=== PATIENT | male | born 1955 | race Caucasian/White ===

== ENCOUNTER 2020-07-05 23:09 | Inpatient (IN) ==
[2020-07-05] MEDS ORDERED: Dexamethasone IV 4 MG/ML VIAL 1 ml VIAL IV SLOW PU ONE (23:39)
[2020-07-05 23:59] LABS: ABS Basophils 0.1 10^3/ul (0-0.2); ABS Lymphocytes 2.2 10^3/ul (1.0-4.8); ABS Monocytes 0.8 10^3/ul (0-0.8); Eosinophil % 0.1 %; Hematocrit 41 % (42-52); Hemoglobin 13.8 g/dL (14.0-18.0); Lymphocyte % 24.2 %; Mean Corpuscular HGB Conc 34 g/dL (31-36); Mean Corpuscular Hemoglobin 31 pg (27-31); Mean Corpuscular Volume 90 fL (80-94); Mean Platelet Volume 8.5 fL (7.4-10.4); Nucleated Red Blood Cells % 0.2; Platelet Count 211 10^3/uL (150-450); Red Blood Count 4.53 10^6 /uL (4.18-5.48); Red Cell Distribution Width 15 % (10-15); White Blood Count 9.1 10^3/uL (3.5-10.8)
[2020-07-06 00:18] LABS: ALT 63 U/L (7-52); AST 71 U/L (13-39); Albumin 3.6 g/dL (3.2-5.2); Albumin/Globulin Ratio 1.2 (1-3); Alkaline Phosphatase 46 U/L (34-104); Anion Gap 10 mmol/L (2-11); Blood Urea Nitrogen 40 mg/dL (6-24); CO2 Carbon Dioxide 25 mmol/L (22-32); Calcium 7.9 mg/dL (8.6-10.3); Chloride 100 mmol/L (101-111); EGFR African American 46.6 (>60); EGFR Non-African American 38.6 (>60); Glucose 132 mg/dL (70-100); Potassium 4.3 mmol/L (3.5-5.0); Sodium 135 mmol/L (135-145); Total Protein 6.6 g/dL (6.4-8.9)
[2020-07-06] MEDS ORDERED: Remdesivir 100 mg Vial 200 MG in NS 0.9% 250 ml 210 ML IV ONE (00:32)
[2020-07-06 00:35] LABS: Influenza A Molecular Negative (Negative); Influenza B Molecular Negative (Negative)
[2020-07-06 00:41] LABS: Troponin I 0.19 ng/mL (<0.03)
[2020-07-06] MEDS ORDERED: NS 0.9% 1000 ml BAG 1,000 ML IV ONE (01:14)
[2020-07-06] MEDS ORDERED: cefTRIAXone 1 gm/50 mL NS BAG 1 GM/50 ML BAG ONE (01:29)
[2020-07-06] MEDS: Enoxaparin 60 MG/0.6 ML SYR SUBCUT SCH ×2 (01:41→13:34)
[2020-07-06] MEDS ORDERED: Albuterol HFA INHALER 8 gm MDI INH PRN (01:42)
[2020-07-06] MEDS ORDERED: Tocilizumab 200 MG/10 ML 10 ml VIAL IVPB ONE (01:49)
[2020-07-06] MEDS ORDERED: cefTRIAXone 1 gm/50 mL NS BAG 1 GM/50 ML BAG IVPB SCH (02:00)
[2020-07-06] MEDS ORDERED: Dextrose 50% Syringe 50 ml 25 GM/50 ML SYRINGE IV PUSH PRN (02:03)
[2020-07-06] MEDS ORDERED: Tocilizumab 800 MG in NS 0.9% 100 ml BAG 60 ML IVPB ONE (02:30)
[2020-07-06 03:13] LABS: Activated Partial Thrombo Time 30.4 seconds (26.0-38.0); INR 1.56 (0.82-1.09)
[2020-07-06 03:14] LABS: C Reactive Protein 203.15 mg/L (<8.01)
[2020-07-06 05:44] LABS: Ferritin 436.4 ng/mL (24-336)
[2020-07-06 07:59] LABS: Urine Appearance Turbid; Urine Bilirubin Negative (Negative); Urine Blood 1+ (Negative); Urine Color Yellow; Urine Glucose Negative (Negative); Urine Ketones Negative (Negative); Urine Nitrite Negative (Negative); Urine Protein 2+(100 mg/dL) (Negative); Urine Specific Gravity 1.024 (1.002-1.030); Urine Urobilinogen Negative (Negative)
[2020-07-06 08:11] LABS: Urine Bacteria Absent (Absent); Urine Red Blood Cell 1+(3-5/hpf) (Absent); Urine White Blood Cell Absent (Absent)
[2020-07-06] MEDS: Mometasone/Formoter 200/5 MDI INH SCH ×3 (08:43→20:26)
[2020-07-06] MEDS: Dexamethasone IV 4 MG/ML VIAL 1 ml VIAL IV SLOW PU SCH (08:49)
[2020-07-06 09:34] LABS: ABS Lymphocytes 2.1 10^3/ul (1.0-4.8); ABS Monocytes 0.4 10^3/ul (0-0.8); ABS Neutrophils 5.4 10^3/ul (1.5-7.7); Hematocrit 41 % (42-52); Lymphocyte % 26.3 %; Mean Corpuscular HGB Conc 34 g/dL (31-36); Mean Corpuscular Hemoglobin 31 pg (27-31); Mean Corpuscular Volume 92 fL (80-94); Mean Platelet Volume 9.2 fL (7.4-10.4); Nucleated Red Blood Cells % 0.2; Platelet Count 200 10^3/uL (150-450); Red Blood Count 4.48 10^6 /uL (4.18-5.48); Red Cell Distribution Width 15 % (10-15); White Blood Count 7.8 10^3/uL (3.5-10.8)
[2020-07-06 09:46] LABS: INR 1.44 (0.82-1.09)
[2020-07-06 09:52] LABS: Albumin 3.4 g/dL (3.2-5.2); Anion Gap 11 mmol/L (2-11); CO2 Carbon Dioxide 23 mmol/L (22-32); Calcium 7.4 mg/dL (8.6-10.3); Chloride 103 mmol/L (101-111); Potassium 4.6 mmol/L (3.5-5.0); Sodium 137 mmol/L (135-145)
[2020-07-06 09:58] LABS: ALT 63 U/L (7-52); AST 66 U/L (13-39); Albumin/Globulin Ratio 1.4 (1-3); Alkaline Phosphatase 48 U/L (34-104); Blood Urea Nitrogen 41 mg/dL (6-24); EGFR African American 54.3 (>60); EGFR Non-African American 44.9 (>60); Globulin 2.5 g/dL (2-4); Glucose 165 mg/dL (70-100); Total Protein 5.9 g/dL (6.4-8.9)
[2020-07-06] MEDS: Azithromycin 500 mg/250 ml NS 500 MG/250 ML BAG IVPB SCH (18:27)
[2020-07-06] MEDS: Albuterol HFA INHALER 8 gm MDI INH PRN (18:51)
[2020-07-07] MEDS: Enoxaparin 60 MG/0.6 ML SYR SUBCUT SCH ×2 (01:42→15:15)
[2020-07-07] MEDS: cefTRIAXone 1 gm/50 mL NS BAG 1 GM/50 ML BAG IVPB SCH (02:05)
[2020-07-07 05:23] LABS: Hematocrit 42 % (42-52); Hemoglobin 14.1 g/dL (14.0-18.0); Mean Corpuscular HGB Conc 34 g/dL (31-36); Mean Corpuscular Hemoglobin 31 pg (27-31); Mean Corpuscular Volume 91 fL (80-94); Mean Platelet Volume 9.1 fL (7.4-10.4); Platelet Count 241 10^3/uL (150-450); Red Blood Count 4.61 10^6 /uL (4.18-5.48); Red Cell Distribution Width 15 % (10-15); White Blood Count 11.7 10^3/uL (3.5-10.8)
[2020-07-07 05:34] LABS: Magnesium 2.5 mg/dL (1.9-2.7)
[2020-07-07 05:40] LABS: Phosphorus 3.7 mg/dL (2.5-5.0)
[2020-07-07] MEDS ORDERED: Furosemide 20 mg/2 ml IV VIAL IV ONE (06:13)
[2020-07-07] MEDS: Mometasone/Formoter 200/5 MDI INH SCH ×2 (07:00→21:13)
[2020-07-07] MEDS: Dexamethasone IV 4 MG/ML VIAL 1 ml VIAL IV SLOW PU SCH (08:18)
[2020-07-07] MEDS: Azithromycin 500 mg/250 ml NS 500 MG/250 ML BAG IVPB SCH (09:26)
[2020-07-07] MEDS ORDERED: Perflutren Lipid Microsphere 3 ML VIAL ONE (09:30)
[2020-07-07 11:21] LABS: Albumin 3.3 g/dL (3.2-5.2); Calcium 7.7 mg/dL (8.6-10.3); Magnesium 2.4 mg/dL (1.9-2.7); Potassium 4.6 mmol/L (3.5-5.0); Total Bilirubin 0.7 mg/dL (0.2-1.0)
[2020-07-07 11:27] LABS: Albumin/Globulin Ratio 1.3 (1-3); EGFR African American 68.2 (>60); EGFR Non-African American 56.4 (>60); Globulin 2.6 g/dL (2-4); Phosphorus 3.6 mg/dL (2.5-5.0); Total Protein 5.9 g/dL (6.4-8.9)
[2020-07-07] MEDS: Albuterol HFA INHALER 8 gm MDI INH PRN (16:33)
[2020-07-07] MEDS: Famotidine IV 10 MG/ML 2 ml VIAL (20 mg) IV SLOW PU SCH (20:58)
[2020-07-07] MEDS: Remdesivir 100 mg Vial 100 MG in NS 0.9% 250 ml 230 ML IV SCH (21:12)
[2020-07-08] MEDS: Enoxaparin 60 MG/0.6 ML SYR SUBCUT SCH ×2 (01:48→14:20)
[2020-07-08] MEDS: cefTRIAXone 1 gm/50 mL NS BAG 1 GM/50 ML BAG IVPB SCH (01:48)
[2020-07-08 04:27] LABS: Hematocrit 42 % (42-52); Hemoglobin 14.1 g/dL (14.0-18.0); Mean Corpuscular HGB Conc 33 g/dL (31-36); Mean Corpuscular Hemoglobin 31 pg (27-31); Mean Corpuscular Volume 91 fL (80-94); Mean Platelet Volume 9.2 fL (7.4-10.4); Platelet Count 258 10^3/uL (150-450); Red Blood Count 4.63 10^6 /uL (4.18-5.48); Red Cell Distribution Width 15 % (10-15); White Blood Count 12.2 10^3/uL (3.5-10.8)
[2020-07-08 04:44] LABS: Albumin 3.2 g/dL (3.2-5.2); Albumin/Globulin Ratio 1.1 (1-3); Calcium 7.9 mg/dL (8.6-10.3); EGFR African American 73.5 (>60); EGFR Non-African American 60.8 (>60); Globulin 2.8 g/dL (2-4); Magnesium 2.3 mg/dL (1.9-2.7); Phosphorus 3.9 mg/dL (2.5-5.0); Potassium 4.8 mmol/L (3.5-5.0); Total Bilirubin 0.5 mg/dL (0.2-1.0)
[2020-07-08] MEDS: Albuterol HFA INHALER 8 gm MDI INH PRN (07:48)
[2020-07-08] MEDS: Mometasone/Formoter 200/5 MDI INH SCH ×2 (07:48→19:09)
[2020-07-08] MEDS: Famotidine IV 10 MG/ML 2 ml VIAL (20 mg) IV SLOW PU SCH ×2 (09:06→19:34)
[2020-07-08] MEDS: Azithromycin 500 mg/250 ml NS 500 MG/250 ML BAG IVPB SCH (09:06)
[2020-07-08] MEDS: Dexamethasone IV 4 MG/ML VIAL 1 ml VIAL IV SLOW PU SCH (09:07)
[2020-07-08] MEDS: Remdesivir 100 mg Vial 100 MG in NS 0.9% 250 ml 230 ML IV SCH (21:09)
[2020-07-09] MEDS: cefTRIAXone 1 gm/50 mL NS BAG 1 GM/50 ML BAG IVPB SCH (01:00)
[2020-07-09] MEDS: Enoxaparin 60 MG/0.6 ML SYR SUBCUT SCH ×2 (01:27→14:41)
[2020-07-09 03:35] LABS: Hematocrit 44 % (42-52); Hemoglobin 14.9 g/dL (14.0-18.0); Mean Corpuscular HGB Conc 33 g/dL (31-36); Mean Corpuscular Hemoglobin 31 pg (27-31); Mean Corpuscular Volume 92 fL (80-94); Mean Platelet Volume 8.8 fL (7.4-10.4); Platelet Count 239 10^3/uL (150-450); Red Blood Count 4.84 10^6 /uL (4.18-5.48); Red Cell Distribution Width 15 % (10-15)
[2020-07-09 03:52] LABS: Albumin 3.3 g/dL (3.2-5.2); Albumin/Globulin Ratio 1.1 (1-3); Calcium 8.1 mg/dL (8.6-10.3); EGFR African American 84.8 (>60); EGFR Non-African American 70.1 (>60); Globulin 2.9 g/dL (2-4); Magnesium 2.1 mg/dL (1.9-2.7); Total Bilirubin 0.5 mg/dL (0.2-1.0); Total Protein 6.2 g/dL (6.4-8.9)
[2020-07-09] MEDS ORDERED: Furosemide 40 mg/4 ml IV VIAL IV SLOW PU ONE (08:19)
[2020-07-09] MEDS: Dexamethasone IV 4 MG/ML VIAL 1 ml VIAL IV SLOW PU SCH (09:00)
[2020-07-09] MEDS: Famotidine IV 10 MG/ML 2 ml VIAL (20 mg) IV SLOW PU SCH ×2 (09:00→21:11)
[2020-07-09] MEDS: Albuterol HFA INHALER 8 gm MDI INH PRN (09:15)
[2020-07-09] MEDS: Mometasone/Formoter 200/5 MDI INH SCH ×2 (09:15→19:19)
[2020-07-09] MEDS: Azithromycin 500 mg/250 ml NS 500 MG/250 ML BAG IVPB SCH (09:40)
[2020-07-09 16:04] LABS: Potassium 4.9 mmol/L (3.5-5.0)
[2020-07-09 16:05] LABS: Calcium 8.5 mg/dL (8.6-10.3); EGFR African American 72.1 (>60); EGFR Non-African American 59.6 (>60)
[2020-07-09] MEDS: Remdesivir 100 mg Vial 100 MG in NS 0.9% 250 ml 230 ML IV SCH (21:11)
[2020-07-10] MEDS: Enoxaparin 60 MG/0.6 ML SYR SUBCUT SCH ×2 (02:13→13:13)
[2020-07-10] MEDS: cefTRIAXone 1 gm/50 mL NS BAG 1 GM/50 ML BAG IVPB SCH (02:13)
[2020-07-10 06:42] LABS: Hematocrit 46 % (42-52); Hemoglobin 15.3 g/dL (14.0-18.0); Mean Corpuscular HGB Conc 34 g/dL (31-36); Mean Corpuscular Hemoglobin 31 pg (27-31); Mean Corpuscular Volume 91 fL (80-94); Mean Platelet Volume 8.6 fL (7.4-10.4); Platelet Count 210 10^3/uL (150-450); Red Blood Count 5.02 10^6 /uL (4.18-5.48); Red Cell Distribution Width 15 % (10-15); White Blood Count 13.5 10^3/uL (3.5-10.8)
[2020-07-10 07:06] LABS: Albumin 3.4 g/dL (3.2-5.2); Albumin/Globulin Ratio 1.2 (1-3); Calcium 8.4 mg/dL (8.6-10.3); EGFR Non-African American 68.6 (>60); Globulin 2.8 g/dL (2-4); Magnesium 1.9 mg/dL (1.9-2.7); Phosphorus 4.5 mg/dL (2.5-5.0); Potassium 4.6 mmol/L (3.5-5.0); Total Bilirubin 0.6 mg/dL (0.2-1.0); Total Protein 6.2 g/dL (6.4-8.9)
[2020-07-10] MEDS: Albuterol HFA INHALER 8 gm MDI INH PRN ×2 (07:34→19:38)
[2020-07-10] MEDS: Mometasone/Formoter 200/5 MDI INH SCH ×2 (07:34→19:37)
[2020-07-10] MEDS: Dexamethasone IV 4 MG/ML VIAL 1 ml VIAL IV SLOW PU SCH (08:09)
[2020-07-10] MEDS: Famotidine IV 10 MG/ML 2 ml VIAL (20 mg) IV SLOW PU SCH ×2 (08:09→19:37)
[2020-07-10 08:48] LABS: C Reactive Protein 16.48 mg/L (<8.01)
[2020-07-10] MEDS: Azithromycin 500 mg/250 ml NS 500 MG/250 ML BAG IVPB SCH (08:50)
[2020-07-10] MEDS: Saline NASAL SPRAY 0.65% BTL BOTH NARES PRN ×3 (13:13→19:44)
[2020-07-10] MEDS: Aspirin EC 81 mg TAB.EC (enteric coated) PO SCH (13:13)
[2020-07-10] MEDS: Remdesivir 100 mg Vial 100 MG in NS 0.9% 250 ml 230 ML IV SCH (21:07)
[2020-07-10] MEDS ORDERED: Furosemide 20 mg/2 ml IV VIAL IV ONE (22:33)
[2020-07-11] MEDS: cefTRIAXone 1 gm/50 mL NS BAG 1 GM/50 ML BAG IVPB SCH (01:23)
[2020-07-11] MEDS: Enoxaparin 60 MG/0.6 ML SYR SUBCUT SCH ×2 (02:42→15:04)
[2020-07-11] MEDS: Saline NASAL SPRAY 0.65% BTL BOTH NARES PRN ×2 (03:14→19:57)
[2020-07-11 03:53] LABS: ABS Basophils 0.1 10^3/ul (0-0.2); ABS Eosinophils 0.2 10^3/ul (0-0.6); ABS Lymphocytes 2.2 10^3/ul (1.0-4.8); ABS Monocytes 0.7 10^3/ul (0-0.8); ABS Neutrophils 10.8 10^3/ul (1.5-7.7); Eosinophil % 1.4 %; Hematocrit 47 % (42-52); Hemoglobin 15.6 g/dL (14.0-18.0); Lymphocyte % 15.6 %; Mean Corpuscular HGB Conc 34 g/dL (31-36); Mean Corpuscular Hemoglobin 31 pg (27-31); Mean Corpuscular Volume 91 fL (80-94); Mean Platelet Volume 8.8 fL (7.4-10.4); Nucleated Red Blood Cells % 0.1; Platelet Count 208 10^3/uL (150-450); Red Blood Count 5.11 10^6 /uL (4.18-5.48); Red Cell Distribution Width 15 % (10-15); White Blood Count 14.1 10^3/uL (3.5-10.8)
[2020-07-11 04:09] LABS: Albumin 3.6 g/dL (3.2-5.2); Albumin/Globulin Ratio 1.3 (1-3); Calcium 8.6 mg/dL (8.6-10.3); EGFR African American 79.6 (>60); EGFR Non-African American 65.8 (>60); Globulin 2.7 g/dL (2-4); Phosphorus 5.3 mg/dL (2.5-5.0); Potassium 4.6 mmol/L (3.5-5.0); Total Bilirubin 0.6 mg/dL (0.2-1.0); Total Protein 6.3 g/dL (6.4-8.9)
[2020-07-11] MEDS: Mometasone/Formoter 200/5 MDI INH SCH ×2 (07:17→19:30)
[2020-07-11] MEDS: Albuterol HFA INHALER 8 gm MDI INH PRN (07:17)
[2020-07-11] MEDS: Dexamethasone IV 4 MG/ML VIAL 1 ml VIAL IV SLOW PU SCH (08:08)
[2020-07-11] MEDS: Famotidine IV 10 MG/ML 2 ml VIAL (20 mg) IV SLOW PU SCH ×2 (08:08→19:48)
[2020-07-11] MEDS: Aspirin EC 81 mg TAB.EC (enteric coated) PO SCH (08:08)
[2020-07-11] MEDS: Azithromycin 500 mg/250 ml NS 500 MG/250 ML BAG IVPB SCH (08:36)
[2020-07-11] MEDS ORDERED: Furosemide 40 mg/4 ml IV VIAL IV SLOW PU ONE (08:57)
[2020-07-11 10:34] LABS: C Reactive Protein 11.09 mg/L (<8.01)
[2020-07-12 05:07] LABS: ABS Basophils 0.1 10^3/ul (0-0.2); ABS Eosinophils 0.1 10^3/ul (0-0.6); ABS Lymphocytes 1.7 10^3/ul (1.0-4.8); ABS Monocytes 0.8 10^3/ul (0-0.8); ABS Neutrophils 11.5 10^3/ul (1.5-7.7); Eosinophil % 0.7 %; Hematocrit 47 % (42-52); Hemoglobin 15.7 g/dL (14.0-18.0); Lymphocyte % 11.9 %; Mean Corpuscular HGB Conc 34 g/dL (31-36); Mean Corpuscular Hemoglobin 31 pg (27-31); Mean Corpuscular Volume 91 fL (80-94); Mean Platelet Volume 9.1 fL (7.4-10.4); Nucleated Red Blood Cells % 0.1; Platelet Count 199 10^3/uL (150-450); Red Blood Count 5.12 10^6 /uL (4.18-5.48); Red Cell Distribution Width 15 % (10-15); White Blood Count 14.2 10^3/uL (3.5-10.8)
[2020-07-12 05:29] LABS: Troponin I 0.09 ng/mL (<0.03)
[2020-07-12 05:31] LABS: ALT 119 U/L (7-52); AST 54 U/L (13-39); Albumin 3.5 g/dL (3.2-5.2); Albumin/Globulin Ratio 1.4 (1-3); Alkaline Phosphatase 87 U/L (34-104); CRP High Sensitivity 5.96 mg/L (<2.00); Globulin 2.5 g/dL (2-4); Indirect Bilirubin 0.6 mg/dL (0.3-1.0); Magnesium 2.1 mg/dL (1.9-2.7); Phosphorus 5.4 mg/dL (2.5-5.0)
[2020-07-12 06:10] LABS: Anion Gap 12 mmol/L (2-11); Blood Urea Nitrogen 42 mg/dL (6-24); CO2 Carbon Dioxide 21 mmol/L (22-32); Calcium 8.2 mg/dL (8.6-10.3); Chloride 101 mmol/L (101-111); EGFR African American 84.8 (>60); EGFR Non-African American 70.1 (>60); Glucose 98 mg/dL (70-100); Potassium 4.8 mmol/L (3.5-5.0); Sodium 134 mmol/L (135-145)
[2020-07-12] MEDS: Mometasone/Formoter 200/5 MDI INH SCH ×2 (07:02→19:42)
[2020-07-12] MEDS: Albuterol HFA INHALER 8 gm MDI INH PRN ×3 (07:04→13:30)
[2020-07-12] MEDS: Famotidine IV 10 MG/ML 2 ml VIAL (20 mg) IV SLOW PU SCH ×2 (09:01→20:05)
[2020-07-12] MEDS: Aspirin EC 81 mg TAB.EC (enteric coated) PO SCH (09:01)
[2020-07-12] MEDS: Dexamethasone IV 4 MG/ML VIAL 1 ml VIAL IV SLOW PU SCH (09:02)
[2020-07-12] MEDS: methylPREDNISolone SOD 40 mg/ml 1 ml VIAL IV SCH ×2 (13:19→20:05)
[2020-07-13 04:26] LABS: ABS Basophils 0.1 10^3/ul (0-0.2); ABS Lymphocytes 1.3 10^3/ul (1.0-4.8); ABS Monocytes 0.4 10^3/ul (0-0.8); ABS Neutrophils 13.9 10^3/ul (1.5-7.7); Hematocrit 46 % (42-52); Hemoglobin 15.3 g/dL (14.0-18.0); Lymphocyte % 8.5 %; Mean Corpuscular HGB Conc 33 g/dL (31-36); Mean Corpuscular Hemoglobin 31 pg (27-31); Mean Corpuscular Volume 92 fL (80-94); Mean Platelet Volume 8.7 fL (7.4-10.4); Nucleated Red Blood Cells % 0.1; Platelet Count 196 10^3/uL (150-450); Red Cell Distribution Width 15 % (10-15); White Blood Count 15.7 10^3/uL (3.5-10.8)
[2020-07-13 04:42] LABS: Calcium 8.4 mg/dL (8.6-10.3); EGFR Non-African American 68.6 (>60); Magnesium 2.3 mg/dL (1.9-2.7); Phosphorus 4.5 mg/dL (2.5-5.0)
[2020-07-13 05:06] LABS: Potassium 5.2 mmol/L (3.5-5.0)
[2020-07-13] MEDS: Mometasone/Formoter 200/5 MDI INH SCH ×2 (07:21→19:40)
[2020-07-13] MEDS: Albuterol HFA INHALER 8 gm MDI INH PRN ×2 (07:25→13:06)
[2020-07-13] MEDS: Famotidine IV 10 MG/ML 2 ml VIAL (20 mg) IV SLOW PU SCH ×2 (09:11→21:16)
[2020-07-13] MEDS: methylPREDNISolone SOD 40 mg/ml 1 ml VIAL IV SCH ×2 (09:11→21:16)
[2020-07-13] MEDS: Aspirin EC 81 mg TAB.EC (enteric coated) PO SCH (09:11)
[2020-07-13] MEDS ORDERED: Furosemide 40 mg/4 ml IV VIAL IV ONE (09:29)
[2020-07-13] MEDS: Acetylcysteine 600mgCAP(RENAL) PO SCH ×2 (13:11→21:16)
[2020-07-14 04:51] LABS: ABS Lymphocytes 1.6 10^3/ul (1.0-4.8); ABS Monocytes 0.7 10^3/ul (0-0.8); Eosinophil % 0.1 %; Hematocrit 47 % (42-52); Hemoglobin 15.8 g/dL (14.0-18.0); Lymphocyte % 8.9 %; Mean Corpuscular HGB Conc 34 g/dL (31-36); Mean Corpuscular Hemoglobin 31 pg (27-31); Mean Corpuscular Volume 92 fL (80-94); Mean Platelet Volume 9.3 fL (7.4-10.4); Platelet Count 179 10^3/uL (150-450); Red Blood Count 5.06 10^6 /uL (4.18-5.48); Red Cell Distribution Width 15 % (10-15); White Blood Count 18.4 10^3/uL (3.5-10.8)
[2020-07-14 05:07] LABS: ALT 83 U/L (7-52); AST 30 U/L (13-39); Albumin 3.6 g/dL (3.2-5.2); Albumin/Globulin Ratio 1.4 (1-3); Alkaline Phosphatase 102 U/L (34-104); Blood Urea Nitrogen 39 mg/dL (6-24); C Reactive Protein 3.09 mg/L (<8.01); CO2 Carbon Dioxide 26 mmol/L (22-32); Calcium 8.4 mg/dL (8.6-10.3); Chloride 102 mmol/L (101-111); EGFR Non-African American 77.7 (>60); Globulin 2.5 g/dL (2-4); Glucose 154 mg/dL (70-100); Indirect Bilirubin 0.6 mg/dL (0.3-1.0); Magnesium 2.2 mg/dL (1.9-2.7); Sodium 133 mmol/L (135-145); Total Protein 6.1 g/dL (6.4-8.9)
[2020-07-14 05:10] LABS: Anion Gap 5 mmol/L (2-11); Potassium 5.3 mmol/L (3.5-5.0); Troponin I 0.09 ng/mL (<0.03)
[2020-07-14] MEDS ORDERED: SODIUM ZIRCONIUM CYCLOSILICATE 10 GM PACKET PO ONE (08:00)
[2020-07-14] MEDS ORDERED: Furosemide 40 mg/4 ml IV VIAL IV ONE (08:03)
[2020-07-14] MEDS: Mometasone/Formoter 200/5 MDI INH SCH (08:37)
[2020-07-14] MEDS: Albuterol HFA INHALER 8 gm MDI INH PRN ×2 (09:16→18:00)
[2020-07-14] MEDS: methylPREDNISolone SOD 40 mg/ml 1 ml VIAL IV SCH (09:17)
[2020-07-14] MEDS: Famotidine IV 10 MG/ML 2 ml VIAL (20 mg) IV SLOW PU SCH ×2 (09:17→21:49)
[2020-07-14] MEDS: Saline NASAL SPRAY 0.65% BTL BOTH NARES PRN ×2 (09:19→18:01)
[2020-07-14] MEDS: Acetylcysteine 600mgCAP(RENAL) PO SCH ×2 (11:05→21:50)
[2020-07-14] MEDS: Multivitamins/Minerals TAB PO SCH (11:29)
[2020-07-14] MEDS: Aspirin EC 81 mg TAB.EC (enteric coated) PO SCH (11:29)
[2020-07-14] MEDS: Fluticasone-Salmeterol 250-50 DISKUS INH SCH (20:53)
[2020-07-14 22:06] LABS: Calcium 8.6 mg/dL (8.6-10.3); EGFR African American 79.6 (>60); EGFR Non-African American 65.8 (>60)
[2020-07-14 22:59] LABS: Potassium 4.8 mmol/L (3.5-5.0)
[2020-07-15] MEDS: Fluticasone-Salmeterol 250-50 DISKUS INH SCH ×3 (00:06→20:07)
[2020-07-15 05:46] LABS: ABS Lymphocytes 1.4 10^3/ul (1.0-4.8); ABS Neutrophils 13.6 10^3/ul (1.5-7.7); Eosinophil % 0.1 %; Hematocrit 49 % (42-52); Hemoglobin 16.3 g/dL (14.0-18.0); Lymphocyte % 8.7 %; Mean Corpuscular HGB Conc 34 g/dL (31-36); Mean Corpuscular Hemoglobin 31 pg (27-31); Mean Corpuscular Volume 93 fL (80-94); Nucleated Red Blood Cells % 0.1; Platelet Count 175 10^3/uL (150-450); Red Blood Count 5.27 10^6 /uL (4.18-5.48); Red Cell Distribution Width 15 % (10-15); White Blood Count 16.1 10^3/uL (3.5-10.8)
[2020-07-15 06:06] LABS: ALT 69 U/L (7-52); AST 28 U/L (13-39); Albumin 3.7 g/dL (3.2-5.2); Albumin/Globulin Ratio 1.5 (1-3); Alkaline Phosphatase 90 U/L (34-104); Anion Gap 6 mmol/L (2-11); Blood Urea Nitrogen 42 mg/dL (6-24); C Reactive Protein 2.14 mg/L (<8.01); CO2 Carbon Dioxide 27 mmol/L (22-32); Calcium 8.2 mg/dL (8.6-10.3); Chloride 101 mmol/L (101-111); EGFR African American 92.9 (>60); EGFR Non-African American 76.8 (>60); Globulin 2.5 g/dL (2-4); Glucose 107 mg/dL (70-100); Indirect Bilirubin 0.7 mg/dL (0.3-1.0); Potassium 4.6 mmol/L (3.5-5.0); Sodium 134 mmol/L (135-145); Total Protein 6.2 g/dL (6.4-8.9)
[2020-07-15 06:12] LABS: Troponin I 0.06 ng/mL (<0.03)
[2020-07-15] MEDS: Albuterol HFA INHALER 8 gm MDI INH PRN (08:43)
[2020-07-15] MEDS ORDERED: Furosemide 40 mg/4 ml IV VIAL IV ONE (08:49)
[2020-07-15] MEDS: Multivitamins/Minerals TAB PO SCH (09:06)
[2020-07-15] MEDS: Aspirin EC 81 mg TAB.EC (enteric coated) PO SCH (09:06)
[2020-07-15] MEDS: Famotidine IV 10 MG/ML 2 ml VIAL (20 mg) IV SLOW PU SCH ×2 (09:07→21:06)
[2020-07-15] MEDS: methylPREDNISolone SOD 40 mg/ml 1 ml VIAL IV SCH (09:07)
[2020-07-15] MEDS: Acetylcysteine 600mgCAP(RENAL) PO SCH ×2 (09:22→21:07)
[2020-07-15] MEDS ORDERED: Furosemide 40 mg/4 ml IV VIAL IV SLOW PU ONE (13:00)
[2020-07-16 06:29] LABS: ABS Eosinophils 0.1 10^3/ul (0-0.6); ABS Lymphocytes 1.4 10^3/ul (1.0-4.8); ABS Monocytes 0.9 10^3/ul (0-0.8); ABS Neutrophils 14.4 10^3/ul (1.5-7.7); Eosinophil % 0.4 %; Hematocrit 50 % (42-52); Hemoglobin 16.2 g/dL (14.0-18.0); Lymphocyte % 8.1 %; Mean Corpuscular HGB Conc 32 g/dL (31-36); Mean Corpuscular Hemoglobin 31 pg (27-31); Mean Corpuscular Volume 94 fL (80-94); Mean Platelet Volume 9.1 fL (7.4-10.4); Nucleated Red Blood Cells % 0.1; Platelet Count 171 10^3/uL (150-450); Red Blood Count 5.32 10^6 /uL (4.18-5.48); Red Cell Distribution Width 15 % (10-15); White Blood Count 16.8 10^3/uL (3.5-10.8)
[2020-07-16 06:47] LABS: ALT 52 U/L (7-52); AST 25 U/L (13-39); Albumin 3.6 g/dL (3.2-5.2); Albumin/Globulin Ratio 1.5 (1-3); Alkaline Phosphatase 104 U/L (34-104); Anion Gap 7 mmol/L (2-11); Blood Urea Nitrogen 44 mg/dL (6-24); C Reactive Protein 2.07 mg/L (<8.01); CO2 Carbon Dioxide 28 mmol/L (22-32); Calcium 8.1 mg/dL (8.6-10.3); Chloride 101 mmol/L (101-111); EGFR African American 83.9 (>60); EGFR Non-African American 69.4 (>60); Globulin 2.4 g/dL (2-4); Glucose 108 mg/dL (70-100); Indirect Bilirubin 0.7 mg/dL (0.3-1.0); Potassium 4.6 mmol/L (3.5-5.0); Sodium 136 mmol/L (135-145)
[2020-07-16 06:54] LABS: Troponin I 0.07 ng/mL (<0.03)
[2020-07-16] MEDS: Albuterol HFA INHALER 8 gm MDI INH PRN (07:19)
[2020-07-16] MEDS: Fluticasone-Salmeterol 250-50 DISKUS INH SCH ×2 (07:19→22:56)
[2020-07-16] MEDS ORDERED: Furosemide 40 mg/4 ml IV VIAL IV ONE ×2 (08:01→14:00)
[2020-07-16] MEDS: Famotidine IV 10 MG/ML 2 ml VIAL (20 mg) IV SLOW PU SCH ×2 (09:03→20:51)
[2020-07-16] MEDS: methylPREDNISolone SOD 40 mg/ml 1 ml VIAL IV SCH (09:07)
[2020-07-16] MEDS: Multivitamins/Minerals TAB PO SCH (09:07)
[2020-07-16] MEDS: Aspirin EC 81 mg TAB.EC (enteric coated) PO SCH (09:07)
[2020-07-16] MEDS: Acetylcysteine 600mgCAP(RENAL) PO SCH ×2 (09:08→20:54)
[2020-07-16] MEDS: Saline NASAL SPRAY 0.65% BTL BOTH NARES PRN (22:58)
[2020-07-17 06:38] LABS: C Reactive Protein 1.45 mg/L (<8.01); Calcium 8.4 mg/dL (8.6-10.3); EGFR African American 72.1 (>60); EGFR Non-African American 59.6 (>60); Potassium 4.7 mmol/L (3.5-5.0)
[2020-07-17] MEDS: Acetylcysteine 600mgCAP(RENAL) PO SCH ×2 (07:56→21:35)
[2020-07-17] MEDS: Multivitamins/Minerals TAB PO SCH (07:56)
[2020-07-17] MEDS: Famotidine IV 10 MG/ML 2 ml VIAL (20 mg) IV SLOW PU SCH ×2 (07:57→21:36)
[2020-07-17] MEDS: Aspirin EC 81 mg TAB.EC (enteric coated) PO SCH (07:57)
[2020-07-17] MEDS: Fluticasone-Salmeterol 250-50 DISKUS INH SCH ×2 (10:15→20:03)
[2020-07-17] MEDS: Saline NASAL SPRAY 0.65% BTL BOTH NARES PRN (21:33)
[2020-07-18 06:26] LABS: ABS Basophils 0.1 10^3/ul (0-0.2); ABS Eosinophils 0.2 10^3/ul (0-0.6); ABS Lymphocytes 1.3 10^3/ul (1.0-4.8); ABS Neutrophils 15.2 10^3/ul (1.5-7.7); Eosinophil % 0.9 %; Hematocrit 50 % (42-52); Lymphocyte % 7.4 %; Mean Corpuscular HGB Conc 32 g/dL (31-36); Mean Corpuscular Hemoglobin 30 pg (27-31); Mean Corpuscular Volume 94 fL (80-94); Mean Platelet Volume 9.1 fL (7.4-10.4); Nucleated Red Blood Cells % 0.1; Platelet Count 167 10^3/uL (150-450); Red Blood Count 5.28 10^6 /uL (4.18-5.48); Red Cell Distribution Width 15 % (10-15); White Blood Count 17.7 10^3/uL (3.5-10.8)
[2020-07-18 06:42] LABS: Calcium 8.3 mg/dL (8.6-10.3); EGFR Non-African American 68.6 (>60); Magnesium 2.2 mg/dL (1.9-2.7); Potassium 4.6 mmol/L (3.5-5.0)
[2020-07-18] MEDS ORDERED: Furosemide 40 mg/4 ml IV VIAL IV SLOW PU ONE (06:49)
[2020-07-18] MEDS ORDERED: Furosemide 40 mg/4 ml IV VIAL IV ONE (08:24)
[2020-07-18] MEDS: Fluticasone-Salmeterol 250-50 DISKUS INH SCH ×2 (08:39→19:30)
[2020-07-18] MEDS: Acetylcysteine 600mgCAP(RENAL) PO SCH ×2 (09:17→19:59)
[2020-07-18] MEDS: Aspirin EC 81 mg TAB.EC (enteric coated) PO SCH (09:18)
[2020-07-18] MEDS: Famotidine IV 10 MG/ML 2 ml VIAL (20 mg) IV SLOW PU SCH ×2 (09:19→19:58)
[2020-07-18] MEDS: Multivitamins/Minerals TAB PO SCH (09:19)
[2020-07-19 05:37] LABS: ABS Basophils 0.1 10^3/ul (0-0.2); ABS Eosinophils 0.2 10^3/ul (0-0.6); ABS Lymphocytes 1.7 10^3/ul (1.0-4.8); ABS Neutrophils 14.6 10^3/ul (1.5-7.7); Eosinophil % 1.1 %; Hematocrit 47 % (42-52); Hemoglobin 15.7 g/dL (14.0-18.0); Lymphocyte % 9.5 %; Mean Corpuscular HGB Conc 34 g/dL (31-36); Mean Corpuscular Hemoglobin 31 pg (27-31); Mean Corpuscular Volume 92 fL (80-94); Mean Platelet Volume 8.9 fL (7.4-10.4); Nucleated Red Blood Cells % 0.1; Platelet Count 162 10^3/uL (150-450); Red Cell Distribution Width 15 % (10-15); White Blood Count 17.6 10^3/uL (3.5-10.8)
[2020-07-19 05:54] LABS: Calcium 8.2 mg/dL (8.6-10.3); EGFR African American 90.7 (>60); Magnesium 2.2 mg/dL (1.9-2.7); Potassium 4.5 mmol/L (3.5-5.0)
[2020-07-19] MEDS: Fluticasone-Salmeterol 250-50 DISKUS INH SCH ×3 (07:49→20:04)
[2020-07-19] MEDS: Famotidine IV 10 MG/ML 2 ml VIAL (20 mg) IV SLOW PU SCH ×2 (08:05→21:17)
[2020-07-19] MEDS: Multivitamins/Minerals TAB PO SCH (08:05)
[2020-07-19] MEDS: Aspirin EC 81 mg TAB.EC (enteric coated) PO SCH (08:05)
[2020-07-19] MEDS: Acetylcysteine 600mgCAP(RENAL) PO SCH ×2 (08:22→21:17)
[2020-07-19] MEDS: Ondansetron 4 mg VIAL 2 MG/ML 2 ml VIAL IV PRN (08:55)
[2020-07-19] MEDS: Albuterol/Ipratropium NEB.SOL (2.5/0.5 MG) 3 ML NEB.SOLN INH PRN (21:59)
[2020-07-20] MEDS: Saline NASAL SPRAY 0.65% BTL BOTH NARES PRN (00:11)
[2020-07-20] MEDS: Albuterol/Ipratropium NEB.SOL (2.5/0.5 MG) 3 ML NEB.SOLN INH PRN (03:01)
[2020-07-20] MEDS: Albuterol/Ipratropium NEB.SOL (2.5/0.5 MG) 3 ML NEB.SOLN INH SCH ×3 (04:03→11:29)
[2020-07-20] MEDS: Fluticasone-Salmeterol 250-50 DISKUS INH SCH ×2 (07:24→21:59)
[2020-07-20] MEDS: Multivitamins/Minerals TAB PO SCH (07:26)
[2020-07-20] MEDS: Acetylcysteine 600mgCAP(RENAL) PO SCH ×2 (07:26→22:00)
[2020-07-20] MEDS: Aspirin EC 81 mg TAB.EC (enteric coated) PO SCH (07:26)
[2020-07-20] MEDS: Famotidine IV 10 MG/ML 2 ml VIAL (20 mg) IV SLOW PU SCH ×2 (07:27→22:51)
[2020-07-20] MEDS ORDERED: Furosemide 40 mg/4 ml IV VIAL IV SLOW PU ONE (08:21)
[2020-07-20 09:40] LABS: EGFR African American 99.9 (>60); EGFR Non-African American 82.6 (>60); Potassium 4.6 mmol/L (3.5-5.0)
[2020-07-21 05:29] LABS: Magnesium 2.1 mg/dL (1.9-2.7); Phosphorus 4.1 mg/dL (2.5-5.0)
[2020-07-21 06:57] LABS: Calcium 7.8 mg/dL (8.6-10.3); EGFR African American 115.7 (>60); EGFR Non-African American 95.6 (>60); Potassium 4.1 mmol/L (3.5-5.0)
[2020-07-21] MEDS ORDERED: Furosemide 40 mg/4 ml IV VIAL IV SLOW PU ONE (08:26)
[2020-07-21] MEDS: Fluticasone-Salmeterol 250-50 DISKUS INH SCH ×3 (08:45→19:25)
[2020-07-21] MEDS: Albuterol/Ipratropium NEB.SOL (2.5/0.5 MG) 3 ML NEB.SOLN INH PRN (08:45)
[2020-07-21] MEDS: Famotidine IV 10 MG/ML 2 ml VIAL (20 mg) IV SLOW PU SCH ×2 (09:14→21:11)
[2020-07-21] MEDS: Multivitamins/Minerals TAB PO SCH (09:16)
[2020-07-21] MEDS: Acetylcysteine 600mgCAP(RENAL) PO SCH ×2 (09:17→21:16)
[2020-07-21] MEDS: Aspirin EC 81 mg TAB.EC (enteric coated) PO SCH (09:17)
[2020-07-21] MEDS ORDERED: Morphine ORAL.SOLN 10 mg 2 mg/ml UDC 5 ml (10 mg) ONE (09:29)
[2020-07-21] MEDS ORDERED: Morphine 10 MG/ML VIAL (1 ml) ONE (09:32)
[2020-07-21] MEDS ORDERED: Morphine 10 MG/ML VIAL (1 ml) IV ONE (09:35)
[2020-07-22 04:57] LABS: EGFR African American 114.1 (>60); EGFR Non-African American 94.3 (>60); Potassium 3.8 mmol/L (3.5-5.0)
[2020-07-22] MEDS: Fluticasone-Salmeterol 250-50 DISKUS INH SCH ×2 (08:09→19:20)
[2020-07-22] MEDS: Ondansetron 4 mg VIAL 2 MG/ML 2 ml VIAL IV PRN (09:38)
[2020-07-22] MEDS: Albuterol/Ipratropium NEB.SOL (2.5/0.5 MG) 3 ML NEB.SOLN INH PRN (09:38)
[2020-07-22] MEDS: Famotidine IV 10 MG/ML 2 ml VIAL (20 mg) IV SLOW PU SCH ×2 (09:48→21:38)
[2020-07-22] MEDS: Acetylcysteine 600mgCAP(RENAL) PO SCH ×2 (09:48→21:40)
[2020-07-22] MEDS: Aspirin EC 81 mg TAB.EC (enteric coated) PO SCH (09:48)
[2020-07-22] MEDS: Multivitamins/Minerals TAB PO SCH (09:48)
[2020-07-22] MEDS ORDERED: Furosemide 40 mg/4 ml IV VIAL IV SLOW PU ONE (12:26)
[2020-07-23 04:37] LABS: ABS Basophils 0.1 10^3/ul (0-0.2); ABS Eosinophils 0.8 10^3/ul (0-0.6); ABS Lymphocytes 1.7 10^3/ul (1.0-4.8); ABS Monocytes 1.1 10^3/ul (0-0.8); ABS Neutrophils 13.8 10^3/ul (1.5-7.7); Eosinophil % 4.5 %; Hematocrit 46 % (42-52); Lymphocyte % 9.7 %; Mean Corpuscular HGB Conc 33 g/dL (31-36); Mean Corpuscular Hemoglobin 31 pg (27-31); Mean Corpuscular Volume 93 fL (80-94); Mean Platelet Volume 8.9 fL (7.4-10.4); Platelet Count 123 10^3/uL (150-450); Red Blood Count 4.92 10^6 /uL (4.18-5.48); Red Cell Distribution Width 15 % (10-15); White Blood Count 17.4 10^3/uL (3.5-10.8)
[2020-07-23 04:52] LABS: Calcium 7.7 mg/dL (8.6-10.3); EGFR African American 109.5 (>60); EGFR Non-African American 90.5 (>60)
[2020-07-23 04:53] LABS: Potassium 4.3 mmol/L (3.5-5.0)
[2020-07-23] MEDS: Aspirin EC 81 mg TAB.EC (enteric coated) PO SCH (09:10)
[2020-07-23] MEDS: Famotidine IV 10 MG/ML 2 ml VIAL (20 mg) IV SLOW PU SCH ×2 (09:10→21:50)
[2020-07-23] MEDS: Multivitamins/Minerals TAB PO SCH (09:11)
[2020-07-23] MEDS: Acetylcysteine 600mgCAP(RENAL) PO SCH (09:11)
[2020-07-23] MEDS: Fluticasone-Salmeterol 250-50 DISKUS INH SCH ×2 (09:11→19:05)
[2020-07-23] MEDS: Saline NASAL SPRAY 0.65% BTL BOTH NARES PRN (09:12)
[2020-07-23] MEDS: Albuterol/Ipratropium NEB.SOL (2.5/0.5 MG) 3 ML NEB.SOLN INH PRN ×2 (09:24→13:29)
[2020-07-23] MEDS ORDERED: Furosemide 20 mg/2 ml IV VIAL IV ONE (09:30)
[2020-07-23] MEDS: Acetylcysteine INHALATION SOL 200 MG/ML NEB.SOLN 10 ML INH PRN (13:29)
[2020-07-23] MEDS ORDERED: Calcium Gluconate 2 GM in NS 0.9% 100 ml BAG 100 ML IV ONE (14:49)
[2020-07-24] MEDS: Albuterol/Ipratropium NEB.SOL (2.5/0.5 MG) 3 ML NEB.SOLN INH PRN ×2 (04:34→07:39)
[2020-07-24] MEDS ORDERED: Furosemide 40 mg/4 ml IV VIAL IV SLOW PU ONE ×2 (05:08→17:14)
[2020-07-24 05:54] LABS: ABS Basophils 0.1 10^3/ul (0-0.2); ABS Eosinophils 0.8 10^3/ul (0-0.6); ABS Lymphocytes 1.8 10^3/ul (1.0-4.8); ABS Monocytes 0.7 10^3/ul (0-0.8); Eosinophil % 4.8 %; Hematocrit 44 % (42-52); Hemoglobin 14.6 g/dL (14.0-18.0); Mean Corpuscular HGB Conc 33 g/dL (31-36); Mean Corpuscular Hemoglobin 31 pg (27-31); Mean Corpuscular Volume 92 fL (80-94); Mean Platelet Volume 9.1 fL (7.4-10.4); Nucleated Red Blood Cells % 0.1; Platelet Count 119 10^3/uL (150-450); Red Blood Count 4.75 10^6 /uL (4.18-5.48); Red Cell Distribution Width 15 % (10-15); White Blood Count 16.5 10^3/uL (3.5-10.8)
[2020-07-24] MEDS: Fluticasone-Salmeterol 250-50 DISKUS INH SCH ×2 (07:40→19:30)
[2020-07-24] MEDS: Acetylcysteine INHALATION SOL 200 MG/ML NEB.SOLN 10 ML INH PRN (07:43)
[2020-07-24] MEDS ORDERED: SELENIUM IV SCH (09:00)
[2020-07-24] MEDS ORDERED: NS 0.9% IV SCH (09:00)
[2020-07-24] MEDS: Famotidine IV 10 MG/ML 2 ml VIAL (20 mg) IV SLOW PU SCH ×2 (10:10→21:28)
[2020-07-24] MEDS: Multivitamins/Minerals TAB PO SCH (10:10)
[2020-07-24] MEDS: Aspirin EC 81 mg TAB.EC (enteric coated) PO SCH (10:10)
[2020-07-24] MEDS: Saline NASAL SPRAY 0.65% BTL BOTH NARES PRN (10:13)
[2020-07-24] MEDS: Acetylcysteine 600mgCAP(RENAL) PO SCH ×2 (10:13→21:31)
[2020-07-24 10:19] LABS: Calcium 8.3 mg/dL (8.6-10.3); EGFR African American 122.7 (>60); EGFR Non-African American 101.4 (>60); Potassium 4.2 mmol/L (3.5-5.0)
[2020-07-24] MEDS: CMCS: Oral Rinse (Biotene)(NF) 237 ML or 473 ML ORAL RINSE BTL MT SCH ×2 (13:29→23:34)
[2020-07-24] MEDS ORDERED: Acetylcysteine 600mgCAP(RENAL) PO SCH (21:00)
[2020-07-25] MEDS ORDERED: Furosemide 40 mg/4 ml IV VIAL IV SLOW PU ONE (02:45)
[2020-07-25 05:53] LABS: Hematocrit 41 % (42-52); Hemoglobin 13.8 g/dL (14.0-18.0); Mean Corpuscular HGB Conc 34 g/dL (31-36); Mean Corpuscular Hemoglobin 31 pg (27-31); Mean Corpuscular Volume 92 fL (80-94); Mean Platelet Volume 8.9 fL (7.4-10.4); Platelet Count 107 10^3/uL (150-450); Red Blood Count 4.43 10^6 /uL (4.18-5.48); Red Cell Distribution Width 15 % (10-15); White Blood Count 14.4 10^3/uL (3.5-10.8)
[2020-07-25 06:08] LABS: Calcium 7.7 mg/dL (8.6-10.3); EGFR Non-African American 91.7 (>60); Potassium 3.4 mmol/L (3.5-5.0)
[2020-07-25] MEDS: Famotidine IV 10 MG/ML 2 ml VIAL (20 mg) IV SLOW PU SCH ×2 (08:08→20:02)
[2020-07-25] MEDS: Fluticasone-Salmeterol 250-50 DISKUS INH SCH ×2 (09:31→20:21)
[2020-07-25] MEDS ORDERED: Succinylcholine 200 mg VIAL 20 mg/ml 10 ml VIAL (200 mg) ONE (10:28)
[2020-07-25] MEDS ORDERED: Propofol 10 mg/ml 100 ML BTL 100 ML ONE (10:44)
[2020-07-25] MEDS ORDERED: Rocuronium 50 mg VIAL 10 mg/ml 5 ml VIAL (50 mg) ONE ×3 (10:58→13:16)
[2020-07-25] MEDS ORDERED: NS 0.9% 500 ml BAG 500 ML IV ONE (12:15)
[2020-07-25] MEDS: Aspirin EC 81 mg TAB.EC (enteric coated) PO SCH (12:34)
[2020-07-25] MEDS: Acetylcysteine 600mgCAP(RENAL) PO SCH ×2 (12:34→20:04)
[2020-07-25] MEDS: Multivitamins/Minerals TAB PO SCH (12:37)
[2020-07-25] MEDS ORDERED: fentaNYL INFUSION 50 MCG/ML 2,500 MCG/50 ML BAG IV SCH ×3 (13:00→16:10)
[2020-07-25] MEDS ORDERED: Chlorhexidine MOUTHWASH 0.12% 15 ML UDC TOPICAL SCH (13:00)
[2020-07-25] MEDS ORDERED: Propofol 10 mg/ml 100 ML BTL 100 ML IV SCH (13:00)
[2020-07-25] MEDS: Cisatracurium 100 MG in NS 0.9% 250 ML BAG 200 ML IV SCH (14:30)
[2020-07-25 15:02] LABS: Urine Appearance Cloudy; Urine Bilirubin Negative (Negative); Urine Blood 2+ (Negative); Urine Color Yellow; Urine Glucose Negative (Negative); Urine Ketones Negative (Negative); Urine Nitrite Negative (Negative); Urine Protein Negative (Negative); Urine Specific Gravity 1.017 (1.002-1.030); Urine Urobilinogen Negative (Negative)
[2020-07-25 15:09] LABS: Urine Bacteria Absent (Absent); Urine Red Blood Cell 3+(>10/hpf) (Absent); Urine White Blood Cell 1+(6-10/hpf) (Absent)
[2020-07-25] MEDS: NS 0.9% 1,000 ML IV SCH ×2 (15:14→17:05)
[2020-07-25] MEDS: Chlorhexidine MOUTHWASH 0.12% 15 ML UDC TOPICAL SCH ×2 (16:38→19:58)
[2020-07-25] MEDS: Propofol 10 mg/ml 100 ML BTL 100 ML IV SCH (19:44)
[2020-07-26] MEDS: Chlorhexidine MOUTHWASH 0.12% 15 ML UDC TOPICAL SCH ×6 (00:26→20:16)
[2020-07-26] MEDS: Propofol 10 mg/ml 100 ML BTL 100 ML IV SCH ×7 (00:27→20:38)
[2020-07-26] MEDS: NS 0.9% 1,000 ML IV SCH ×3 (00:30→16:32)
[2020-07-26 04:37] LABS: Hematocrit 41 % (42-52); Hemoglobin 13.3 g/dL (14.0-18.0); Mean Corpuscular HGB Conc 32 g/dL (31-36); Mean Corpuscular Hemoglobin 31 pg (27-31); Mean Corpuscular Volume 95 fL (80-94); Mean Platelet Volume 8.6 fL (7.4-10.4); Platelet Count 110 10^3/uL (150-450); Red Blood Count 4.33 10^6 /uL (4.18-5.48); Red Cell Distribution Width 16 % (10-15); White Blood Count 14.6 10^3/uL (3.5-10.8)
[2020-07-26 04:44] LABS: INR 1.29 (0.82-1.09)
[2020-07-26 04:46] LABS: Calcium 7.6 mg/dL (8.6-10.3); Magnesium 2.1 mg/dL (1.9-2.7); Potassium 4.2 mmol/L (3.5-5.0)
[2020-07-26 04:52] LABS: EGFR African American 101.2 (>60); EGFR Non-African American 83.6 (>60)
[2020-07-26] MEDS: Cisatracurium 100 MG in NS 0.9% 250 ML BAG 200 ML IV SCH (06:40)
[2020-07-26] MEDS: Famotidine IV 10 MG/ML 2 ml VIAL (20 mg) IV SLOW PU SCH ×2 (07:26→21:27)
[2020-07-26] MEDS: Acetylcysteine 600mgCAP(RENAL) PO SCH ×2 (07:28→21:27)
[2020-07-26] MEDS: Aspirin EC 81 mg TAB.EC (enteric coated) PO SCH (07:29)
[2020-07-26] MEDS: Fluticasone-Salmeterol 250-50 DISKUS INH SCH ×2 (07:34→19:06)
[2020-07-26] MEDS ORDERED: Acetaminophen IV 1 GM/100ML 100 ML ONE (17:44)
[2020-07-26] MEDS ORDERED: Piperacillin/Tazobac ADVAN 3.375 GM in NS 0.9% 100 ml BAG 100 ML IV ONE (17:50)
[2020-07-26] MEDS ORDERED: Zosyn per Pharmacy NOTE FOLLOW UP SCH (18:00)
[2020-07-26] MEDS ORDERED: Albuterol/Ipratropium NEB.SOL (2.5/0.5 MG) 3 ML NEB.SOLN INH SCH (19:00)
[2020-07-26] MEDS ORDERED: Albuterol/Ipratropium NEB.SOL (2.5/0.5 MG) 3 ML NEB.SOLN ONE (19:39)
[2020-07-26] MEDS: Albuterol/Ipratropium NEB.SOL (2.5/0.5 MG) 3 ML NEB.SOLN INH SCH (19:41)
[2020-07-26] MEDS: ZOSYN 3.375 GM Q8H per EXTENDED INFUSION IV SCH (22:09)
[2020-07-27] MEDS: Chlorhexidine MOUTHWASH 0.12% 15 ML UDC TOPICAL SCH ×7 (00:18→23:24)
[2020-07-27] MEDS: Albuterol/Ipratropium NEB.SOL (2.5/0.5 MG) 3 ML NEB.SOLN INH SCH ×3 (00:31→08:27)
[2020-07-27] MEDS: Propofol 10 mg/ml 100 ML BTL 100 ML IV SCH ×6 (00:54→20:19)
[2020-07-27] MEDS: Norepinephrine 16MCG/ML IVPRE 4,000 MCG/250 ML BAG IV SCH ×3 (04:34→21:19)
[2020-07-27 04:58] LABS: ABS Basophils 0.1 10^3/ul (0-0.2); ABS Eosinophils 0.1 10^3/ul (0-0.6); ABS Neutrophils 13.8 10^3/ul (1.5-7.7); Eosinophil % 0.4 %; Hematocrit 41 % (42-52); Hemoglobin 13.4 g/dL (14.0-18.0); Lymphocyte % 6.5 %; Mean Corpuscular HGB Conc 33 g/dL (31-36); Mean Corpuscular Hemoglobin 31 pg (27-31); Mean Corpuscular Volume 95 fL (80-94); Mean Platelet Volume 8.9 fL (7.4-10.4); Nucleated Red Blood Cells % 0.1; Platelet Count 125 10^3/uL (150-450); Red Blood Count 4.27 10^6 /uL (4.18-5.48); Red Cell Distribution Width 16 % (10-15); White Blood Count 16.1 10^3/uL (3.5-10.8)
[2020-07-27 05:15] LABS: Albumin 3.1 g/dL (3.2-5.2); Albumin/Globulin Ratio 1.3 (1-3); Calcium 7.4 mg/dL (8.6-10.3); EGFR African American 54.7 (>60); EGFR Non-African American 45.2 (>60); Globulin 2.4 g/dL (2-4); Magnesium 2.4 mg/dL (1.9-2.7); Phosphorus 5.8 mg/dL (2.5-5.0); Potassium 4.9 mmol/L (3.5-5.0); Total Bilirubin 0.5 mg/dL (0.2-1.0); Total Protein 5.5 g/dL (6.4-8.9)
[2020-07-27] MEDS: ZOSYN 3.375 GM Q8H per EXTENDED INFUSION IV SCH ×3 (06:28→22:06)
[2020-07-27] MEDS: Fluticasone-Salmeterol 250-50 DISKUS INH SCH ×2 (09:17→19:03)
[2020-07-27] MEDS: Acetylcysteine 600mgCAP(RENAL) PO SCH ×2 (09:51→20:19)
[2020-07-27] MEDS: Famotidine IV 10 MG/ML 2 ml VIAL (20 mg) IV SLOW PU SCH ×2 (09:52→20:19)
[2020-07-27] MEDS: Aspirin EC 81 mg TAB.EC (enteric coated) PO SCH (11:54)
[2020-07-27] MEDS ORDERED: Bumetanide IV 0.25 MG/ML 4 ml VIAL (1 mg) SLOW PUSH ONE (22:00)
[2020-07-28] MEDS: Propofol 10 mg/ml 100 ML BTL 100 ML IV SCH ×3 (00:19→07:07)
[2020-07-28] MEDS: Chlorhexidine MOUTHWASH 0.12% 15 ML UDC TOPICAL SCH ×2 (04:00→07:49)
[2020-07-28] MEDS: Norepinephrine 16MCG/ML IVPRE 4,000 MCG/250 ML BAG IV SCH ×2 (04:09→07:23)
[2020-07-28 05:03] LABS: Hematocrit 41 % (42-52); Hemoglobin 13.6 g/dL (14.0-18.0); Mean Corpuscular HGB Conc 33 g/dL (31-36); Mean Corpuscular Hemoglobin 31 pg (27-31); Mean Corpuscular Volume 95 fL (80-94); Mean Platelet Volume 9.3 fL (7.4-10.4); Platelet Count 163 10^3/uL (150-450); Red Blood Count 4.33 10^6 /uL (4.18-5.48); Red Cell Distribution Width 16 % (10-15); White Blood Count 21.3 10^3/uL (3.5-10.8)
[2020-07-28 05:25] LABS: Blood Urea Nitrogen 65 mg/dL (6-24); CO2 Carbon Dioxide 28 mmol/L (22-32); Calcium 7.4 mg/dL (8.6-10.3); Chloride 103 mmol/L (101-111); EGFR African American 45.5 (>60); EGFR Non-African American 37.6 (>60); Glucose 150 mg/dL (70-100); Magnesium 2.8 mg/dL (1.9-2.7); Phosphorus 5.8 mg/dL (2.5-5.0); Sodium 139 mmol/L (135-145)
[2020-07-28 05:36] LABS: Anion Gap 8 mmol/L (2-11)
[2020-07-28] MEDS: ZOSYN 3.375 GM Q8H per EXTENDED INFUSION IV SCH (06:18)
[2020-07-28 06:45] LABS: ABS Basophils 0.1 10^3/ul (0-0.2); ABS Eosinophils 0.4 10^3/ul (0-0.6); ABS Lymphocytes 2.1 10^3/ul (1.0-4.8); ABS Monocytes 1.7 10^3/ul (0-0.8); Eosinophil % 1.9 %; Lymphocyte % 9.8 %; Nucleated Red Blood Cells % 0.1
[2020-07-28] MEDS: Fluticasone-Salmeterol 250-50 DISKUS INH SCH (07:22)
[2020-07-28] MEDS ORDERED: Phenylephrine IV 50 MG in NS 0.9% 250 ml 245 ML IV SCH (08:00)
[2020-07-28] MEDS: Famotidine IV 10 MG/ML 2 ml VIAL (20 mg) IV SLOW PU SCH (08:03)
[2020-07-28] MEDS: Acetylcysteine 600mgCAP(RENAL) PO SCH (08:03)
[2020-07-28] MEDS ORDERED: Morphine 10 MG/ML VIAL (1 ml) IV ONE ×2 (10:20→11:35)
[2020-07-28] MEDS ORDERED: LORazepam 2 mg VIAL 1 ml IV PUSH ONE ×2 (10:20→11:35)
[2020-07-28] MEDS ORDERED: fentaNYL 250 mcg/5 ml 50 MCG/ML 5 ml VIAL (250 MCG) ONE (10:41)
[2020-07-28] MEDS ORDERED: Rocuronium 50 mg VIAL 10 mg/ml 5 ml VIAL (50 mg) ONE (10:41)
[2020-07-28] MEDS ORDERED: Midazolam 10 mg/10 ml VIAL 1 mg/ml 10 ml VIAL (10 mg) ONE (10:41)
[2020-07-28] MEDS ORDERED: Etomidate 40 mg/20 ml (2 MG/ML) 20 ml VIAL (40 mg) ONE (10:41)
[2020-07-28 10:51] VITALS: BP 76/57
[2020-07-28] MEDS ORDERED: Lorazepam PYXIS KEY PRN (10:51)
[2020-07-28] MEDS: Morphine PCA* 150 MG in PREMIX PCA SCH (11:25)
[2020-07-28] MEDS ORDERED: Morphine 10 MG/ML VIAL (1 ml) ONE (11:39)
[2020-07-28] MEDS ORDERED: Lorazepam PYXIS KEY ONE (11:39)
[2020-07-28] MEDS ORDERED: LORazepam 2 mg VIAL 1 ml ONE (11:39)
== END 2020-07-28 14:53 | disposition expired | DRG 137 ==
LOC: ED 23:09 → ICU 07-06 01:00
PROVIDERS: ADMIT Student in an Organized Health Care Education/Training Program; ATTEND Internal Medicine Critical Care Medicine